=== PATIENT | female | born 1970 | race American Indian/Alaskan Native ===

== ENCOUNTER 2019-09-04 18:02 | Emergency (ER) | payer OTHER ==
[2019-09-04 18:11] VITALS: BP 138/76
--- NOTE | 2019-09-04 18:24 | Emergency Department Report ---
ED Lower Extremity HPI - General Chief Complaint: Extremity Injury, Lower Stated Complaint: PAIN Time Seen by Provider: 09/04/19 18:14 Source: patient Mode of arrival: Wheelchair Limitations: No Limitations, Physical Limitation - History of Present Illness Initial Comments: This is a 49-year-old female nontoxic, well nourished in appearance, no acute si gns of distress presents to the ED with c/o of acute on chronic right knee pain 5 years. Patient stated that she has a chronic right knee ligaments condition and is in need of a knee surgery. Stated wether changes make knee pains worsen. Patient denies any new injuries or trauma. Patient denies any numbness, tingling, fever, chills, nausea, vomiting, chest pain, shortness of breath, headache, stiff neck. Patient denies any joint swelling or joint redness. Patient denies decreased range of motion. Patient stated has decreased gait due to pain. Patient stated allergies to codeine. Stated that OTC motrin helps patient but did not take any pain medications today. MD Complaint: knee injury -: year(s) (5) Injury: Knee: Right Severity: mild Severity scale (0 -10): 3 Improves With: immobilization Worsens With: weight bearing, palpation Associated Symptoms: able to partially bear weight, ambulatory. denies: snap/pop sensation, swelling, numbness, tingling, unable to bear weight - Related Data Allergies Allergy/AdvReac Type Severity Reaction Status Date / Time codeine Allergy Itching Verified 09/04/19 18:05 ED Review of Systems ROS: Stated complaint: PAIN Other details as noted in HPI Constitutional: denies: chills, fever Eyes: denies: eye pain, eye discharge, vision change ENT: denies: ear pain, throat pain Respiratory: denies: cough, shortness of breath, wheezing Cardiovascular: denies: chest pain, palpitations Endocrine: no symptoms reported Gastrointestinal: denies: abdominal pain, nausea, diarrhea Genitourinary: denies: urgency, dysuria, discharge Musculoskeletal: denies: back pain, joint swelling, arthralgia Skin: denies: rash, lesions Neurological: denies: headache, weakness, paresthesias Psychiatric: denies: anxiety, depression Hematological/Lymphatic: denies: easy bleeding, easy bruising ED Past Medical Hx - Past Medical History Previous Medical History?: No - Surgical History Past Surgical History?: Yes Additional Surgical History: TUBAL - Social History Smoking Status: Current Every Day Smoker Substance Use Type: None ED Physical Exam - General Limitations: No Limitations, Physical Limitation General appearance: alert, in no apparent distress - Head Head exam: Present: atraumatic, normocephalic - Extremities Exam Extremities exam: Present: normal inspection, full ROM, tenderness, normal capillary refill. Absent: joint swelling, calf tenderness - Expanded Lower Extremity Exam Right Hip exam: Present: normal inspection, full ROM. Absent: tenderness, swelling Upper Leg exam: Present: normal inspection, full ROM. Absent: tenderness, swelling Knee exam: Present: normal inspection, full ROM, full knee extension. Absent: tenderness, swelling, abrasion, laceration, ecchymosis, deformity, crepidus, dislocation, erythema, effusion, pain w/ pronation/supination, posterior draw sign, pain/laxity with valgus, pain/laxity with varus Lower Leg exam: Present: normal inspection, full ROM. Absent: tenderness, swelling, abrasion, laceration, ecchymosis, deformity, crepidus, dislocation, erythema, palpable cord, Mayda's sign Ankle exam: Present: normal inspection, full ROM. Absent: tenderness, swelling Foot/Toe exam: Present: normal inspection Neuro vascular tendon exam: Present: no vascular compromise Gait: Positive: observed and limited by pain - Back Exam Back exam: Present: normal inspection, full ROM - Neurological Exam Neurological exam: Present: alert, oriented X3 - Psychiatric Psychiatric exam: Present: normal affect, normal mood - Skin Skin exam: Present: warm, dry, intact, normal color. Absent: rash ED Course Vital Signs 09/04/19 18:10 Temperature 98.1 F Pulse Rate 69 Respiratory 20 Rate Blood Pressure 138/76 [Left] O2 Sat by Pulse 99 Oximetry - Reevaluation(s) Reevaluation #1: 09/04/19 18:23 Patient is speaking in full sentences with no signs of distress noted. ED Lower Extremity MDM - Medical Decision Making This is a 49-year-old female that presents with chronic right knee pain. Patient is stable and was examined by me. Patient presents with a nonmedical emergency as this is a chronic conditon and patient does have a orthopedic that she follows and is in need of surgery. I referred patient to an orthopedic doctor for further evaluation for possible MRI. Patient does have normal gait with no tenderness and no joint swelling. No ecchymosis. no joint redness or swelling. Not warm to touch. No signs of cellulites present. Patient was instructed to RICE therapy. Patient was instructed to OTC medications for pain control. At time of discharge, the patient does not seem toxic or ill in appearance. No acute signs of distress noted. Patient agrees to discharge treatment plan of care. No further questions noted by the patient. Critical care attestation.: If time is entered above; I have spent that time in minutes in the direct care of this critically ill patient, excluding procedure time. ED Disposition Clinical Impression: Chronic pain of right knee Disposition: MED SCREENING EXAM-LEFT Is pt being admited?: No Does the pt Need Aspirin: No Condition: Stable Instructions: RICE Therapy (ED) Additional Instructions: Follow-up with a orthopedic doctor in 3-5 days or if symptoms worsen and continue return to emergency room as soon as possible. Referrals: JESSY BALLESTEROS MD [Primary Care Provider] - 3-5 Days BILLIE GOFF MD [Staff Physician] - 3-5 Days [facility] [Provider Group] - 3-5 Days
== END 2019-09-04 18:35 | disposition left against medical advice (07) ==
LOC: ED 18:02
DX: G89.29 Other chronic pain (principal); M25.561 Pain in right knee; F17.200 Nicotine dependence, unspecified, uncomplicated; Z98.51 Tubal ligation status; Z88.8 Allergy status to other drugs, medicaments and biological substances
CPT/HCPCS: 99282

== ENCOUNTER 2019-09-09 11:16 | Emergency (ER) | payer OTHER ==
[2019-09-09] MEDS ORDERED: KETOROLAC 60 MG/2 ML INJ IM ONE (12:08)
[2019-09-09] MEDS ORDERED: KETOROLAC 60 MG/2 ML INJ ONE (12:10)
--- NOTE | 2019-09-09 12:11 | Emergency Department Report ---
ED Back Pain/Injury HPI - General Chief Complaint: Extremity Problem,Nontraumatic Stated Complaint: RT SIDE PAIN Time Seen by Provider: 09/09/19 12:04 Source: patient Limitations: No Limitations - History of Present Illness Initial Comments: Patient is 49 years old female with no significant past medical history except for right knee ligament injury 5 years ago. Patient presented to the ER complaining of lower back pain that radiated down to her right leg. Patient stated the pain started 5 days ago. Patient denied any recent injury. Patient denied any fever, chills, weakness numbness or tingling sensation. Patient also denied any bladder or bowel incontinence. No recent weight loss. MD Complaint: back pain -: days(s) (5) Similar Symptoms Previously: No Associated Symptoms: denies other symptoms - Related Data Allergies Allergy/AdvReac Type Severity Reaction Status Date / Time codeine Allergy Itching Verified 09/04/19 18:05 ED Review of Systems ROS: Stated complaint: RT SIDE PAIN Other details as noted in HPI Comment: All other systems reviewed and negative Constitutional: denies: chills, fever Respiratory: denies: cough, shortness of breath Cardiovascular: denies: chest pain, palpitations Gastrointestinal: denies: abdominal pain, nausea, vomiting Musculoskeletal: back pain, arthralgia, myalgia Neurological: denies: headache, weakness, numbness, paresthesias, confusion ED Past Medical Hx - Past Medical History Previous Medical History?: No - Surgical History Past Surgical History?: Yes Additional Surgical History: TUBAL - Social History Smoking Status: Never Smoker Substance Use Type: None ED Physical Exam - General Limitations: No Limitations General appearance: alert, in no apparent distress - Head Head exam: Present: atraumatic, normocephalic, normal inspection - Eye Eye exam: Present: normal appearance - ENT ENT exam: Present: normal exam, normal orophraynx, mucous membranes moist - Neck Neck exam: Present: normal inspection, full ROM. Absent: tenderness, meningismus, lymphadenopathy, thyromegaly - Respiratory Respiratory exam: Present: normal lung sounds bilaterally. Absent: respiratory distress, wheezes, rales, rhonchi, stridor, chest wall tenderness, accessory muscle use, decreased breath sounds, prolonged expiratory - Cardiovascular Cardiovascular Exam: Present: regular rate, normal rhythm, normal heart sounds - GI/Abdominal GI/Abdominal exam: Present: soft, normal bowel sounds. Absent: distended, t enderness, guarding, rebound, rigid, organomegaly, mass, bruit, pulsatile mass, hernia - Extremities Exam Extremities exam: Present: normal inspection, full ROM, normal capillary refill. Absent: pedal edema, calf tenderness - Back Exam Back exam: Present: normal inspection, full ROM. Absent: CVA tenderness (R), CVA tenderness (L) - Neurological Exam Neurological exam: Present: alert, oriented X3, CN II-XII intact, normal gait, reflexes normal. Absent: motor sensory deficit - Psychiatric Psychiatric exam: Present: normal mood - Skin Skin exam: Present: warm, intact, normal color ED Course Vital Signs 09/09/19 09/09/19 09/09/19 11:24 12:12 12:16 Temperature 98.0 F Pulse Rate 68 Respiratory 20 16 16 Rate Blood Pressure 134/78 O2 Sat by Pulse 100 Oximetry ED Medical Decision Making - Radiology Data Radiology results: report reviewed - Medical Decision Making Patient is 49 years old female with no significant past medical history except for right knee ligament injury 5 years ago. Patient presented to the ER complaining of lower back pain that radiated down to her right leg. Patient stated the pain started 5 days ago. Patient denied any recent injury. Patient denied any fever, chills, weakness numbness or tingling sensation. Patient also denied any bladder or bowel incontinence. No recent weight loss. Patient received Toradol 60 mg IM. Patient stated that she is feeling much better. Lumbar sacral spine x-ray is negative for acute finding. Patient symptoms is consistent with sciatica. Patient given prednisone pack and tramadol and advised to follow-up with her primary care physician in the next 2 to 3 days for possible MRI of the lumbar sacral area. Patient also advised to return to the ER if she develop any new symptoms. Critical care attestation.: If time is entered above; I have spent that time in minutes in the direct care of this critically ill patient, excluding procedure time. ED Disposition Clinical Impression: Acute back pain, Sciatica Disposition: - TO HOME OR SELFCARE Is pt being admited?: No Condition: Stable Instructions: Lumbar Radiculopathy (ED), Sciatica (ED) Referrals: PRIMARY CARE, [Primary Care Provider] - 3-5 Days
--- NOTE | 2019-09-09 13:09 | XRay Report ---
XR spine lumbosacral 2-3V INDICATION / CLINICAL INFORMATION: BACK INJURY. COMPARISON: None available. FINDINGS: BONES/JOINT(S): No acute fracture or subluxation. No significant degenerative changes. SOFT TISSUES: No significant abnormality. ADDITIONAL FINDINGS: None. Signer Name: Arnaud Bethea MD Signed: 09/09/2019 1:05 PM Workstation Name: [email or web address]
[2019-09-09 14:05] VITALS: BP 130/76
== END 2019-09-09 13:25 | disposition home or self-care (01) ==
LOC: ED 11:16
DX: M54.40 Lumbago with sciatica, unspecified side (principal)
CPT/HCPCS: 72100; 96372; 99283; J1885

== ENCOUNTER 2020-02-27 11:01 | Outpatient (CLI) | payer OTHER ==
--- NOTE | 2020-02-27 12:33 | XRay Report ---
RIGHT FEMUR 4 VIEWS INDICATION / CLINICAL INFORMATION: RIGHT HIP PAIN. COMPARISON: None available. FINDINGS: No significant skeletal abnormality Signer Name: Hi Solis MD FACR Signed: 02/27/2020 12:29 PM Workstation Name: [id number]
--- NOTE | 2020-02-27 12:34 | XRay Report ---
RIGHT HIP 2 VIEW(S) INDICATION / CLINICAL INFORMATION: RIGHT HIP PAIN COMPARISON: None available. FINDINGS: BONES / JOINT(S): No acute fracture or subluxation. No significant arthritis. SOFT TISSUES: No significant abnormality. ADDITIONAL FINDINGS: Moderate amount of fecal material throughout the colon and rectum. Signer Name: Ricky Kwan MD Signed: 02/27/2020 12:30 PM Workstation Name: [id number]
== END 2020-02-27 11:02 | disposition home or self-care (01) ==
LOC: XRAY 11:01
PROVIDERS: ATTEND Neurological Surgery
DX: M25.551 Pain in right hip (principal); K59.00 Constipation, unspecified

== ENCOUNTER 2020-03-04 09:52 | Outpatient (CLI) | payer OTHER ==
--- NOTE | 2020-03-04 15:03 | Vascular Lab Report ---
VL venous duplex LE BILAT INDICATION / CLINICAL INFORMATION: RIGHT HIP PAIN. COMPARISON: None available. FINDINGS: No evidence of deep vein thrombosis in either leg. IMPRESSION: 1. Negative study. Signer Name: Jim Do MD Signed: 03/04/2020 2:58 PM Workstation Name: [email or web address]
== END 2020-03-04 09:53 | disposition home or self-care (01) ==
LOC: VAS 09:52
DX: M25.551 Pain in right hip (principal)
CPT/HCPCS: 93970

== ENCOUNTER 2020-03-18 07:19 | Emergency (ER) | payer OTHER ==
[2020-03-18 07:26] VITALS: BP 151/89
== END 2020-03-18 08:30 | disposition left against medical advice (07) ==
LOC: ED 07:19
DX: S61.212A Laceration without foreign body of right middle finger without damage to nail, initial encounter (principal); Z53.21 Procedure and treatment not carried out due to patient leaving prior to being seen by health care provider; W26.0XXA Contact with knife, initial encounter; Y93.89 Activity, other specified; Y92.89 Other specified places as the place of occurrence of the external cause; Y99.8 Other external cause status

== ENCOUNTER 2021-08-30 10:34 | Outpatient (CLI) | payer OTHER ==
--- NOTE | 2021-08-30 13:42 | XRay Report ---
Lumbar spine 3 views INDICATION: Back pain FINDINGS: Mild anterior listhesis of L3 on L4 measures 6 mm. No compression fractures seen. Facet jose nges at L4-5 and L5-S1. 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 Signer Name: Gene Vargas MD Signed: 08/30/2021 1:37 PM Workstation Name: [id number]
--- NOTE | 2021-08-30 13:50 | XRay Report ---
Right knee 2 views INDICATION: Right leg pain FINDINGS: Alignment appears normal. No acute fracture dislocation. No large joint effusion. IMPRESSION: No acute findings. Signer Name: Gene Vargas MD Signed: 08/30/2021 1:46 PM Workstation Name: [id number]
== END 2021-08-30 10:35 | disposition home or self-care (01) ==
LOC: XRAY 10:34
PROVIDERS: ATTEND Internal Medicine
DX: M51.37 Other intervertebral disc degeneration, lumbosacral region (principal); M79.604 Pain in right leg
CPT/HCPCS: 72100

== ENCOUNTER 2021-10-22 08:41 | Emergency (ER) | payer MEDICAID, OTHER ==
[2021-10-22 08:49] VITALS: BP 121/78
[2021-10-22] MEDS ORDERED: ASPIRIN 325 MG TAB PO ONE (08:49)
[2021-10-22 09:34] LABS: Basophils % (Auto) 0.3 % (0.0-1.8); Eosinophils % (Auto) 0.2 % (0.0-4.3); Hematocrit 39.8 % (30.3-42.9); Hemoglobin 13.5 gm/dl (10.1-14.3); Lymphocytes # (Auto) 1.2 K/mm3 (1.2-5.4); Lymphocytes % (Auto) 13.8 % (13.4-35.0); Mean Corpuscular HGB Conc 34 % (30-34); Mean Corpuscular Volume 91 fl (79-97); Monocytes # (Auto) 0.6 K/mm3 (0.0-0.8); Monocytes % (Auto) 7.3 % (0.0-7.3); Platelet Count 313 K/mm3 (140-440); Red Blood Count 4.37 M/mm3 (3.65-5.03); Red Cell Distribution Width 15.2 % (13.2-15.2)
--- NOTE | 2021-10-22 09:36 | XRay Report ---
CHEST 2 VIEWS INDICATION: chest pain. COMPARISON: None FINDINGS: SUPPORT DEVICES: None. HEART: Within normal limits. LUNGS/PLEURA: No acute air space or interstitial disease. No pneumothorax. ADDITIONAL FINDINGS: None. IMPRESSION: 1. No acute findings. Signer Name: Justin Holloway MD Signed: 10/22/2021 9:32 AM Workstation Name: [id number]
[2021-10-22 09:51] LABS: Alanine Aminotransferase 32 units/L (7-56); Albumin 4.1 g/dL (3.9-5); Blood Urea Nitrogen 16 mg/dL (7-17); Calcium 9.3 mg/dL (8.4-10.2); Hemolysis Index 7
[2021-10-22 10:08] LABS: BUN/Creatinine Ratio 23
--- NOTE | 2021-10-22 11:37 | Electrocardiograph Report ---
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
== END 2021-10-23 04:21 | disposition left against medical advice (07) ==
LOC: ED 08:41
DX: R52 Pain, unspecified (principal); Z53.21 Procedure and treatment not carried out due to patient leaving prior to being seen by health care provider
CPT/HCPCS: 36415; 71046; 80053; 84484; 85025; 93005